=== PATIENT | male | born 1975 | race Caucasian/White ===

== ENCOUNTER 2016-09-19 20:10 | Inpatient (IN) | payer BC ==
--- NOTE | ~2016-09-19 | CO ---
Unit #: [id number] #: [id number] Patient: RASTA COLMENARES [id number] [address] [address] [id number] I MR#: [id number] NAME: RASTA COLMENARES ROOM: [facility] Age: 40 Sex: M Admission Date: 09/19/2016 : 1975 Attending Physician: Amanuel Jack M.D. Primary Care Physician: No Primary Care Physician CONSULTATION REPORT DISCUSSION The patient is a bit brighter today and is denying suicidal ideation or "bad thoughts." He is agreeable to remain in the hospital for one further day of observation. He states that he and his have made arrangements for marital therapy to take place on the day following discharge. I have spoken with the patient regarding his 's concerns that Mirapex may cause increased psychotic symptoms. I explained to the patient that the very little dosage used in bipolar depression should not result in this adverse event. Dictated by... Amanuel Jack M.D. CB/mary TD: 09/22/2016 14:10 JOB #: [id number] CONSULTATION REPORT Page 1 of 1 X Amanuel Jack MD X CONSULTATION REPORT
--- NOTE | ~2016-09-19 | DS ---
Unit #: [id number] #: [id number] Patient: RASTA COLMENARES [id number] [facility] [address] [place] [address] [id number] I MR#: [id number] NAME: RASTA COLMENARES ROOM: [facility] Age: 40 Sex: M Admission Date: 09/19/2016 : 1975 Discharge Date: 09/23/2016 Attending Physician: Amanuel Jack M.D. Primary Care Physician: Primary Care Physician No DISCHARGE SUMMARY REASON FOR ADMISSION The patient is a 40-year-old white male, admitted to the [facility] with increasing suicidal ideation. HOSPITAL COURSE The patient was admitted to the [facility] and placed on suicide precautions. He was continued on previously prescribed medications and was allowed to continue taking his home supply of Oxtellar XR. He also continued on Zoloft. This physician added Mirapex 0.25 mg b.i.d. to address the patient's complaints of bipolar and depression. Given the fact that the patient reported a history of poor response to second-generation antipsychotics, the patient showed slow, but steady improvement in mood and by 09/23/2016 was in much brighter spirits. He denied suicidal ideation and was tolerating Mirapex without complaint. Discharge was ordered. FINAL DIAGNOSES Bipolar disorder, most recent episode depressed; borderline personality traits. DISPOSITION ON DISCHARGE The patient is discharged on the following medications; Mirapex 0.25 mg b.i.d. for bipolar and depression, Zoloft 150 mg at bedtime for depression, Oxtellar XR one tablet q.12 hours for mood stabilization. DISCHARGE INSTRUCTIONS No dietary or physical restrictions were placed on the patient at the time of discharge. FOLLOWUP Followup will take place through the auspices of the patient's previous psychiatric provider in the [place], [place] area. PROGNOSIS His prognosis is considered good. Dictated by... Amanuel Jack M.D. [place]/maryellen TD: 09/23/2016 23:53 Unit #: [id number] #: [id number] Patient: RASTA COLMENARES JOB #: [id number] DISCHARGE SUMMARY Page 1 of 1 X Amanuel Jack MD DISCHARGE SUMMARY
--- NOTE | ~2016-09-19 | PN ---
Unit #: [id number] #: [id number] Patient: RASTA COLMENARES [id number] [facility] [address] [place] [address] [id number] I MR#: [id number] NAME: RASTA COLMENARES ROOM: [facility] Age: 40 Sex: M Admission Date: 09/19/2016 : 1975 Attending Physician: Amanuel Jack M.D. Admitting Physician: Amanuel Jack M.D. Primary Care Physician: Primary Care Physician Rita CHARLTON PROGRESS NOTES DATE 09/21/2016 DISCUSSION The patient is abed resting comfortably and does not arouse after multiple attempts by this physician to arouse him. We are continuing current treatment. He did comply with Mirapex per staff. Dictated by... Amanuel Jack M.D. CB/ilsa TD: 09/22/2016 01:26 JOB #: [id number] [facility] PROGRESS NOTES Page 1 of 1 X Amanuel Jack MD X PROGRESS NOTE
--- NOTE | ~2016-09-19 | HP ---
Unit #: [id number] #: [id number] Patient: RATSA COLMENARES [id number] [place] [address] [id number] I MR#: [id number] NAME: RASTA COLMENARES ROOM: [facility] Age: 40 Sex: M Admission Date: 09/19/2016 : 1975 Attending Physician: Amanuel Jack M.D. Admitting Physician: Amanuel Jack M.D. Primary Care Physician: Primary Care Physician No HISTORY AND PHYSICAL HISTORY OF PRESENT ILLNESS Rasta is a 40-year-old male admitted on 09/19/[address] [place] [address] for depression with thoughts of suicide. PAST MEDICAL HISTORY 1. IBS 2. Sleep apnea 3. Bipolar disorder PAST SURGICAL HISTORY Tonsillectomy SOCIAL HISTORY No tobacco, alcohol or illegal drug use. He is currently and living with his and children. FAMILY HISTORY Noncontributory. REVIEW OF SYSTEMS CONSTITUTIONAL: No fever or chills. HEENT: Denies any sore throat, ear pain or runny nose. CARDIOVASCULAR: Denies chest pain, irregular heart rhythm or palpitations. CHEST: Denies shortness of breath or cough. No hemoptysis. GASTROINTESTINAL: Denies nausea, vomiting, diarrhea or chronic constipation. ENDOCRINE: Denies history of increased thirst or urination. No recent significant weight loss or gain. GENITOURINARY: Denies dysuria, frequency, or hematuria. SKIN: Denies any rashes. HEMATOLOGIC: Denies history of increased bleeding or bruising. MUSCULOSKELETAL: Denies any hot, swollen joints. No generalized muscle pain. NEUROLOGIC: Denies problems with vision or speech. No frequent, severe headaches. No numbness, tingling or weakness in any extremities. Denies loss of bladder or bowel control. CURRENT MEDICATIONS Sertraline ALLERGIES Unit #: [id number] #: [id number] Patient: RASTA COLMENARES No known drug allergies. PHYSICAL EXAMINATION GENERAL: Alert, oriented, in no acute distress. VITAL SIGNS: Blood pressure 127/76, heart rate 91, respirations 20, temperature 98.6. HEIGHT: 5 foot 10 inches. WEIGHT: 225 pounds. SKIN: Warm and dry without rash or lesion. HEENT: Normocephalic. TMs not viewed. Oral and nasal passages clear. Conjunctivae clear. PERRLA. EOMs intact. NECK: Supple without lymphadenopathy or thyromegaly. HEART: Regular rate and rhythm without murmur. LUNGS: Clear. ABDOMEN: Soft, nontender, without masses or hepatosplenomegaly. : Not done. EXTREMITIES: No evidence of cyanosis, clubbing or edema. Moves all without focal deficit. NEUROLOGICAL: Grossly within normal limits. Cranial Nerves: II: Visual hall are intact. III, IV AND : Extraocular movements are intact. Pupils are equal, round and reactive to light. V: Facial sensation is grossly normal. VII: Facial movements and expression are normal. VIII: Auditory acuity grossly intact. IX, X: Uvula is midline. Phonation is normal. XI: Patient shrugs shoulders and turns head normally. XII: Tongue protrudes in the midline. Sensory and Motor Function: Sensory and motor sensation is grossly normal. Motor: moves all extremities well. Coordination: Gait is normal. Deep Tendon Reflexes: Intact. IMPRESSION 1. Psychiatric admission. 2. IBS. 3. Sleep apnea. 4. Bipolar disorder. RECOMMENDATIONS Psychiatric, per psychiatrist. MEDICAL: I see no contraindications to participating in facility's activities. MEDICAL PROGNOSIS Good. MEDICAL CONDITION Stable. Dictated by... Gladis Scruggs/ilsa Unit #: [id number] #: [id number] Patient: RASTA COLMENARES TD: 09/20/2016 18:31 JOB #: [id number] HISTORY AND PHYSICAL Page 1 of 1 X ORACIO ABEL APRN X HISTORY AND PHYSICAL
--- NOTE | ~2016-09-19 | PA ---
Unit #: [id number] #: [id number] Patient: RASTA COLMENARES [id number] [facility] [address] [place] [address] [id number] I MR#: [id number] NAME: RASTA COLMENARES ROOM: [facility] Age: 40 Sex: M Admission Date: 09/19/2016 : 1975 Date of Assessment: 09/20/2016 Attending Physician: Amanuel Jack M.D. Admitting Physician: Amanuel Jack M.D. Primary Care Physician: Primary Care Physician No PSYCHIATRIC ASSESSMENT IDENTIFYING INFORMATION The patient is a 40-year-old white male admitted from [facility], where he had been taken after he had reportedly taken an overdose of medication. CHIEF COMPLAINT None given. INFORMANT(S) Patient, reliability is fair. HISTORY OF PRESENT ILLNESS The patient is a 40-year-old white male admitted after he had taken extra medication in an effort for "go to sleep." The patient reports recent depressive symptoms and was admitted to the [facility] in [place] from Thursday through Thursday of last week. On , he was readmitted to [facility] where he self-inflicted a wound to his right forehead. The patient reports that in February he was diagnosed with bipolar spectrum disorder at "[facility]," and since that time he has been prescribed Oxtellar, a oxcarbazepine extended release formulation, and sertraline. He reports a history of adverse response to second-generation antipsychotics complaining of severe akathisia with these medications. The patient is today denying suicidal ideation and is pushing for discharge. The patient denies abuse of any psychoactive substances. He lives with his and 2 children and reports that theirs is a supportive relationship. The patient reports variable sleep. He denies loss of appetite. He does complain of poor energy. He was reporting positive suicidal ideation with plan to drive his car off the chanda and does engage in self-mutilating behavior as described previously. PAST PSYCHIATRIC HISTORY As noted previously. PAST MEDICAL HISTORY The patient suffered from irritable bowel syndrome. MEDICATIONS Oxtellar, sertraline. ALLERGIES None. FAMILY HISTORY Unit #: [id number] #: [id number] Patient: RASTA COLMENARES The patient reports that maternal aunt suffers from schizophrenia. SOCIAL HISTORY The patient is employed by the [employer]. He is a graduate of [employer] with a bachelor's degree from that institution. He is father of 2 children. There is no reported use of alcohol, tobacco, or street drugs. MENTAL STATUS EXAMINATION Examination at this time reveals the patient to be a somewhat obese white male appearing stated age. He is in no apparent physical distress at the time of examination. He is awake, alert, and oriented in all spheres. His mood is dysphoric, his affect constricted. Speech is generally well-coherent. There are no gross deficits in memory or cognition noted. Intelligence is judged to be in the average range based on fund of knowledge. The patient is cooperative throughout the interview. He is currently denying suicidal or homicidal ideation or psychotic features. Judgment and insight appear to be intact. ASSETS AND LIABILITIES The patient's assets: Motivation for change. Liabilities: Possible borderline traits. TREATMENT PLAN The patient remains hospitalized for safety and stabilization. Suicide precautions are in place. We will continue previously prescribed Oxtellar which the patient will take from his own supply. Sertraline will also be continued given his history of poor response to second-generation antipsychotics. I will instead begin pramipexole 0.25 mg twice daily in hopes of addressing the patient's depressive symptoms. He will participate in appropriate order of milieu activities. ESTIMATED LENGTH OF STAY 3 to 4 days. I will recommend that the patient follow in an intensive outpatient or partial hospitalization program in [place] following his discharge. Dictated by... Amanuel Jack M.D. [place]/lino TD: 09/20/2016 12:41 JOB #: [id number] PSYCHIATRIC ASSESSMENT Page 1 of 1 X Amanuel Jack MD X PSYCHIATRIC ASSESSMENT
[2016-09-20 11:23] LABS: BASOPHIL# 0.1 X10e3 (0-0.3); BASOPHIL% 0.9 % (0-2.5); EOSINOPHIL# 0.4 X10e3 (0-0.7); HEMATOCRIT 46.2 % (38.0-50.0); HEMOGLOBIN 15.1 gm/dL (13.0-16.0); LYMPHOCYTE# 2.3 X10e3 (1.0-3.5); LYMPHOCYTE% 25.7 % (17.0-45.0); MEAN CELL VOLUME 78.1 FL (83-96); MEAN CORPUSCULAR HEMOGLOBIN 25.5 PG (28-34); MEAN CORPUSCULAR HGB CONC 32.6 g/dL (30-36); MEAN PLATELET VOLUME 7.5 FL (6.5-11.5); MONOCYTE# 1.2 X10e3 (0-1.0); MONOCYTE% 13.4 % (3.0-12.0); NEUTROPHIL# 5.1 X10e3 (1.5-7.1); PLATELET COUNT 234 X10e3 (140-420); RED BLOOD COUNT 5.92 X10e (3.90-5.60); RED CELL DISTRIBUTION WIDTH 15.2 % (11.0-15.5); WHITE BLOOD COUNT 9.1 X10e3 (4.0-10.5)
[2016-09-20 11:24] LABS: DIFF IND NO
[2016-09-20 12:11] LABS: ALBUMIN SERUM 4.2 g/dL (3.5-5.0); BILIRUBIN,TOTAL 0.4 mg/dL (0.2-2.0); BUN/CREATININE RATIO 11.81; CALCIUM SERUM 9.1 mg/dL (8.4-10.2); CREATININE SERUM 1.1 mg/dL (0.6-1.4); GLOM FILT RATE Estimated 84.1 mL/min (>60); POTASSIUM 4.2 mmol/L (3.5-5.1); PROTEIN TOTAL SERUM 6.6 g/dL (6.0-8.3)
[2016-09-22 09:44] LABS: URINE APPEARANCE CLEAR; URINE BILIRUBIN NEG (NEG); URINE BLOOD NEG (NEG); URINE COLOR YELLOW; URINE GLUCOSE NEG (NEG); URINE KETONE NEG (NEG); URINE LEUKOCYTE ESTERASE NEG (NEG); URINE NITRATE NEG (NEG); URINE PH 5.5 (5-8); URINE PROTEIN NEG (NEG); URINE SPECIFIC GRAVITY 1.011 (1.003-1.035); URINE UROBILINOGEN 0.2 MG/DL (NEG)
[2016-09-22 10:02] LABS: AMPHETAMINE NEG (NEG); BARBITURATES NEG (NEG); BENZODIAZEPINES NEG (NEG); COCAINE NEG (NEG); MARIJUANA NEG (NEG); OPIATES NEG (NEG); TRICYCLIC ANTIDEPRESSANTS NEG (NEG); U METHADONE NEG (NEG)
== END 2016-09-23 16:15 | disposition home or self-care (01) | DRG 885 ==
LOC: P2L 20:10
PROVIDERS: Specialist
DX: F31.9 Bipolar disorder, unspecified (principal); F60.3 Borderline personality disorder; K58.9 Irritable bowel syndrome, unspecified; G47.30 Sleep apnea, unspecified
CPT/HCPCS: 80053; 80307; 81003; 85025